=== PATIENT | male | born 1960 | race Caucasian/White ===

== ENCOUNTER 2021-03-02 07:36 | Day surgery (SDC) | payer OTHER, SELFPAY ==
[~2021-03-02] VITALS: Ht 167.6 cm; Wt 77.1 kg
[~2021-03-02 07:36] MED LIST: BENADRYL
[2021-03-02] MEDS ORDERED: fentaNYL citrate 0.05 MG/ML VIAL ONE (11:28)
[2021-03-02] MEDS ORDERED: MIDAZOLAM 5 MG/5 ML VIAL ONE (11:29)
[2021-03-02] MEDS ORDERED: LIDOCAINE 2% 100 MG/5 ML UJET TP ONE (11:30)
[2021-03-02] MEDS ORDERED: KETOROLAC 60 MG/2 ML VIAL IM ONE (11:40)
[2021-03-02] MEDS ORDERED: KETOROLAC 30 MG/ML VIAL IVP ONE (11:50)
[2021-03-02] MEDS ORDERED: LIDOCAINE JELLY 2% 30 ML TUBE TP ONE (11:50)
== END 2021-03-02 13:10 | disposition home or self-care (01) ==
LOC: MDS 07:36 → MMU 07:37 → MDS 13:10
PROVIDERS: ATTEND Internal Medicine Gastroenterology
DX: Z12.11 Encounter for screening for malignant neoplasm of colon (principal); K57.30 Diverticulosis of large intestine without perforation or abscess without bleeding; Z20.828 Contact with and (suspected) exposure to other viral communicable diseases
CPT/HCPCS: 45378; J1885; J2250; U0003; J3010